=== PATIENT | male | born 1940 | race Caucasian/White ===

== ENCOUNTER 2023-01-07 07:40 | Outpatient (REF) | payer OTHER, SELFPAY ==
--- NOTE | ~2023-01-07 | XR_ITS ---
EXAMINATION: XR KNEE, RIGHT CLINICAL INFORMATION: Reason for Exam M25.561 - Pain in right knee COMPARISON: None TECHNIQUE: 3 views of the knee FINDINGS: No acute fracture or dislocation. Moderate to advanced degenerative changes of the knee with with advanced loss of medial and lateral compartment joint space and tricompartmental osteophytes.. Trace suprapatellar joint effusion. Atherosclerotic vascular calcification. XR/XR knee RT 3V IMPRESSION: * No acute osseous abnormality. * Moderate to advanced degenerative changes of the knee. Small suprapatellar joint effusion.
== END 2023-01-07 07:41 | disposition home or self-care (01) ==
LOC: HO.HOSX 07:40
PROVIDERS: Visit Provider Orthopaedic Surgery
DX: M17.11 Unilateral primary osteoarthritis, right knee (principal); Z79.899 Other long term (current) drug therapy
CPT/HCPCS: 73562; 99202

== ENCOUNTER 2023-01-07 07:48 | Outpatient (AMB) | payer OTHER, SELFPAY ==
--- NOTE | 2023-01-07 07:59 | A.OFFVIS_ITS ---
Intake Vital Signs 01/07/23 08:08 Height 5 ft 9 in Weight 200 lb BMI 29.5 Intake Visit Reasons: [employer] [facility]- Right knee pain Intake Note: Ellie 82 yr old male presents today as a new patient for an evaluation for his right knee. Patient states his pain is on and off thought out the years due to osteoarthritis. Patient has tried Tylenol, aleve, cortisone and bracing from [facility] with good pain relief. Pain is worse with walking down a flight of stairs. States his last cortisone injection was December 29, 2022 in [place] with his PCP. The patient states that he has gotten minimal relief from his most recent cortisone injections. He would like to avoid total knee replacement surgery for as long as possible. He has not had a viscosupplementation injection. He has done physical therapy which aggravated his pain. Allergies No Known Allergies Allergy (Verified 01/07/23 08:05) Medication List - Last Reconciled 01/07/23 by Jayden Beltran MD atorvastatin 10 mg PO BEDTIME budesonide-formoterol 80-4.5 mcg/actuation (Symbicort) 1 inh inhalation BID losartan 25 mg PO DAILY tamsulosin 0.4 mg PO DAILY [facility] Medical History (Updated 01/07/23 @ 08:53 by Jayden Beltran MD) COPD (chronic obstructive pulmonary disease) High blood pressure High cholesterol Social History (Updated 01/07/23 @ 08:08 by [facility]) Current occupational status: employed and retired Current occupation: [employer]/ [employer] Physical Exam Vital Signs: BMI result Body Mass Index 29.5 Const Other: Well-nourished well-developed very friendly male awake alert and oriented x3 in no acute distress Extrem Other: Bilateral lower extremity examination shows good capillary refill, no skin lesions noted, normal sensation light touch Right knee examination shows a minimal effusion, palpable crepitus with range of motion, pain with range of motion, range of motion from -3 degrees to 115 degrees, no instability Results Reviewed Results Reviewed: X-rays of the patient's right knee taken today show severe joint space narrowing, subchondral sclerosis, osteophyte formation, no acute bony abnormalities Assessment & Plan Assessment & Plan (1) Arthritis of right knee: Code(s): M17.11 - Unilateral primary osteoarthritis, right knee Plan Mr. Castellon presents with right knee pain due to severe degenerative joint disease. I had a lengthy discussion with the patient and his regarding the treatment options. He would like to hold off on total knee replacement surgery for as long as possible. I agree with this plan. The patient has not gotten good relief from his most recent cortisone injections. Thus, we will see [email or web address] er not his insurance company will cover a viscosupplementation injection. I will see him back once the injection is available. If he fails continued non operative treatments we will further discuss the risks and benefits of total knee replacement surgery. Feel free to call me at any time should questions regarding his orthopedic management arise. Thank you very much for asking me to see this very friendly gentleman. I spent 23 minutes in reviewing the patient's records and imaging studies, seeing the patient and documenting in the medical record. Orders: Orders XR knee RT 3V Today M25.561 - Pain in right knee Coding Level of Care Code New Pt Level 2 (03446) Diagnoses Arthritis of right knee M17.11
[2023-01-07 08:08] VITALS: BMI 29.5
== END 2023-01-07 08:47 | disposition home or self-care (01) ==
PROVIDERS: Visit Provider Orthopaedic Surgery
DX: M17.11 Unilateral primary osteoarthritis, right knee (principal)
CPT/HCPCS: 99202

== ENCOUNTER 2023-03-17 08:00 | Outpatient (AMB) | payer OTHER, SELFPAY ==
[2023-03-17 08:05] VITALS: BMI 29.5
--- NOTE | 2023-03-17 08:05 | A.OFFVIS_ITS ---
Intake Vital Signs 03/17/23 08:05 Height 5 ft 9 in Weight 200 lb BMI 29.5 Intake Visit Reasons: OV - Right Knee Durolane Intake Note: The patient is an 82 yr old male presents today as a new patient for an evaluation for his right knee. Patient states his pain is on and off thought out the years due to osteoarthritis. Patient has tried Tylenol, aleve, cortisone and bracing from [facility] with good pain relief. Pain is worse with walking down a flight of stairs. States his last cortisone injection was December 29, 2022 in [place] with his PCP. The patient states that he has gotten minimal relief from his most recent cortisone injections. He would like to avoid total knee replacement surgery for as long as possible. He has not had a viscosupplementation injection. He has done physical therapy which aggravated his pain. Allergies No Known Allergies Allergy (Verified 03/17/23 08:07) Medication List - Last Reconciled 03/17/23 by Jayden Beltran MD atorvastatin 10 mg PO BEDTIME budesonide-formoterol 80-4.5 mcg/actuation (Symbicort) 1 inh inhalation BID losartan 25 mg PO DAILY tamsulosin 0.4 mg PO DAILY [facility] Medical History (Updated 01/07/23 @ 08:53 by Jayden Beltran MD) High cholesterol High blood pressure COPD (chronic obstructive pulmonary disease) Social History Current occupational status: employed and retired Current occupation: [employer]/ [employer] Physical Exam Vital Signs: BMI result Body Mass Index 29.5 Const Other: Well-nourished well-developed very friendly male awake alert and oriented x3 in no acute distress Extrem Other: Bilateral lower extremity examination shows good capillary refill, no skin lesions noted, normal sensation light touch Right knee examination shows a moderate effusion, palpable crepitus range of motion, pain with range of motion, range of motion from -3 degrees to 110 degrees, no instability Office Procedures Joint Injection/Drain Joint Injection/Drain Primary Site: right knee Prep: site was prepped using aseptic technique Injected: 20 mg of (Durolane) Procedure: The patient tolerated the procedure well Coding 90142 - Large joint Procedure code (CPT) selection complete Results Reviewed Results Reviewed: 03/17/23 08:00 Hyaluronate Sodium, Stabilized [Durolane] 60 mg INTRAARTIC .STK-MED ONE Lidocaine HCl 2 % MPF [Xylocaine 2 % MPF] 5 ml .ROUTE .STK-MED ONE X-rays of the patient's right knee show joint space narrowing, subchondral sclerosis, no acute bony abnormalities Assessment & Plan Assessment & Plan (1) Arthritis of right knee: Code(s): M17.11 - Unilateral primary osteoarthritis, right knee Plan: Mr. Castellon presents with progressively worsening right knee pain due to degenerative joint disease. I had a lengthy discussion with the patient regarding his treatment options. He wishes to hold off on surgery for as long as possible. I agree with this plan. The risks and benefits of a viscosupplementation injection were discussed at length with the patient. The patient wished to proceed. Prior to the injection I aspirated 25 cc of clear fluid from his right knee. He tolerated the injection well. He will continue with his activity modifications. He will follow up with me on an as-needed basis should his symptoms not plateau at an unacceptable level over the next few months. If he fails continued non operative treatments we will further discuss the risks and benefits of right total knee replacement surgery. Feel free to call me at any time should questions regarding his orthopedic management arise. I spent 22 minutes in reviewing the patient's records and imaging studies, seeing the patient and documenting in the medical record. Orders: Orders AMB Joint Injection/Aspiration Today M17.11 - Unilateral primary osteoarthritis, right knee Coding Level of Care Code Est Pt Level 2 (81969) Diagnoses Arthritis of right knee M17.11 CPT Codes Coding - 41156 Large joint: 87265 - Large joint ([id number])
== END 2023-03-17 08:31 | disposition home or self-care (01) ==
PROVIDERS: Visit Provider Orthopaedic Surgery
DX: M17.11 Unilateral primary osteoarthritis, right knee (principal)
CPT/HCPCS: 20610; 99212

== ENCOUNTER → 2023-03-17 08:00 | Outpatient (BNVA) | payer OTHER, SELFPAY | PROVIDERS: Visit Provider Orthopaedic Surgery | DX: M17.11 Unilateral primary osteoarthritis, right knee (principal) | CPT/HCPCS: 20610; 99212; J7318 ==

== ENCOUNTER 2023-06-18 08:22 | Outpatient (AMB) | payer OTHER, SELFPAY ==
[2023-06-18 08:27] VITALS: BMI 29.5
--- NOTE | 2023-06-18 08:27 | MHC.OFFVIS ---
Intake Vital Signs 06/18/23 08:27 Height 5 ft 9 in Weight 200 lb BMI 29.5 Intake Visit Reasons: OV - Right Knee pain Intake Note: Dax is a 83 year old male patient who presents today for a follow up after a Right knee aspiration and Durolane injection on 03/17/2023. Patient states his last injection gave him mild relief. Today the patient presents with complaints of bilateral knee pains. He has tried Tylenol and anti-inflammatory medicines which gave him minimal relief. He has also done physical therapy exercises which aggravated his pain. He wishes to hold off on surgery for as long as possible. Allergies No Known Allergies Allergy (Verified 06/18/23 08:28) Medication List - Last Reconciled 06/19/23 by Jayden Beltran MD atorvastatin 10 mg PO BEDTIME budesonide-formoterol 80-4.5 mcg/actuation (Symbicort) 1 inh inhalation BID losartan 25 mg PO DAILY tamsulosin 0.4 mg PO DAILY [facility] Medical History (Updated 06/19/23 @ 16:10 by Jayden Beltran MD) High cholesterol High blood pressure COPD (chronic obstructive pulmonary disease) Social History Current occupational status: employed and retired Current occupation: [employer]/ [employer] Physical Exam Vital Signs: BMI result Body Mass Index 29.5 Const Other: Well-nourished well-developed very friendly male awake alert and oriented x3 in no acute distress Extrem Other: Bilateral lower extremity examination shows good capillary refill, no skin lesions noted, normal sensation light touch Bilateral knee examination shows minimal effusions, palpable crepitus with range of motion, pain with range of motion, no instability Office Procedures Joint Injection/Drain Joint Injection/Drain Primary Site: left knee Prep: site was prepped using aseptic technique Injected: 40 mg of, DepoMedrol and 1% plain lidocaine Procedure: The patient tolerated the procedure well Coding 35531 - Large joint Procedure code (CPT) selection complete Joint Injection/Drain Joint Injection/Drain Primary Site: right knee Prep: site was prepped using aseptic technique Injected: 40 mg of, DepoMedrol and 1% plain lidocaine Procedure: The patient tolerated the procedure well Coding 64153 - Large joint Procedure code (CPT) selection complete Results Reviewed Results Reviewed: X-rays of the patient's bilateral knee show joint space narrowing, subchondral sclerosis, no acute bony abnormalities Assessment & Plan Assessment & Plan (1) Arthritis of left knee: Code(s): M17.12 - Unilateral primary osteoarthritis, left knee (2) Arthritis of right knee: Code(s): M17.11 - Unilateral primary osteoarthritis, right knee Plan Mr. Castellon presents with bilateral knee pains due to degenerative joint disease. I had a lengthy discussion with the patient regarding the treatment options. He wishes to hold off on surgery for as long as possible. I agree with this plan. The risks and benefits of bilateral knee cortisone injections were discussed at length with the patient. The patient wished to proceed. He tolerated the injections well. He will continue with his home exercise program. Will follow up with me on an as-needed basis should his symptoms not plateau at an unacceptable level over the next few months. Feel free to call me at any time should questions regarding his orthopedic management arise. I spent 22 minutes in reviewing the patient's records and imaging studies, seeing the patient and documenting in the medical record. Orders: Orders AMB Joint Injection/Aspiration 06/18/23 M17.11 - Unilateral primary osteoarthritis, right knee AMB Joint Injection/Aspiration 06/18/23 M17.12 - Unilateral primary osteoarthritis, left knee Coding Level of Care Code Est Pt Level 2 (72258) Diagnoses Arthritis of left knee M17.12 Arthritis of right knee M17.11 CPT Codes Coding - 94322 Large joint: 11629 - Large joint ([id number]) Coding - 21062 Large joint: 45235 - Large joint ([id number])
== END 2023-06-18 09:15 | disposition home or self-care (01) ==
PROVIDERS: Visit Provider Orthopaedic Surgery
DX: M17.0 Bilateral primary osteoarthritis of knee (principal)
CPT/HCPCS: 20610; 99213

== ENCOUNTER → 2023-06-18 08:22 | Outpatient (BNVA) | payer OTHER, SELFPAY | PROVIDERS: Visit Provider Orthopaedic Surgery | DX: M17.0 Bilateral primary osteoarthritis of knee (principal) | CPT/HCPCS: 20610; 99212; J1020 ==

== ENCOUNTER 2023-09-24 10:58 | Outpatient (AMB) | payer OTHER, SELFPAY ==
--- NOTE | 2023-09-24 11:16 | MHC.OFFVIS ---
Intake Vital Signs 09/24/23 11:17 Height 5 ft 9 in Weight 200 lb BMI 29.5 Intake Visit Reasons: OV-B/L Knee pain-f/u Intake Note: Dax Argueta is a 83 year old male who presents for a follow up for his bilateral knee pain. Patient reports he had bilateral injections on 06/18/2023 and they gave him good relief. His pains have returned. He describes his pains as sharp in nature. At this point his right knee pain is more bothersome than is his left. He wishes to hold off on surgery for as long as possible. Has tried Tylenol and anti-inflammatory medicines which gave him minimal relief. Allergies No Known Allergies Allergy (Verified 09/24/23 11:25) Medication List - Last Reconciled 09/25/23 by Jayden Beltran MD atorvastatin 10 mg PO BEDTIME budesonide-formoterol 80-4.5 mcg/actuation (Symbicort) 1 inh inhalation BID losartan 25 mg PO DAILY tamsulosin 0.4 mg PO DAILY [facility] Medical History High cholesterol High blood pressure COPD (chronic obstructive pulmonary disease) Social History Current occupational status: employed and retired Current occupation: [employer]/ [employer] Physical Exam Vital Signs: BMI result Body Mass Index 29.5 Const Other: Well-nourished well-developed very friendly male awake alert and oriented x3 in no acute distress Extrem Other: Bilateral lower extremity examination shows good capillary refill, no skin lesions noted, normal sensation light touch Bilateral knee examination shows mild effusions, palpable crepitus with range of motion, pain with range of motion, no instability Office Procedures Joint Injection/Drain Joint Injection/Drain Primary Site: right knee Prep: site was prepped using aseptic technique Injected: 40 mg of, DepoMedrol and 1% plain lidocaine Procedure: The patient tolerated the procedure well Coding 44722 - Large joint Procedure code (CPT) selection complete Joint Injection/Drain Joint Injection/Drain Primary Site: left knee Prep: site was prepped using aseptic technique Injected: 40 mg of, DepoMedrol and 1% plain lidocaine Procedure: The patient tolerated the procedure well Coding 18011 - Large joint Procedure code (CPT) selection complete Results Reviewed Results Reviewed: X-rays of the patient's bilateral knee show joint space narrowing, subchondral sclerosis, no acute bony abnormalities Assessment & Plan Assessment & Plan (1) Arthritis of left knee: Code(s): M17.12 - Unilateral primary osteoarthritis, left knee (2) Arthritis of right knee: Code(s): M17.11 - Unilateral primary osteoarthritis, right knee Plan Mr. Castellon presents with bilateral knee pains due to degenerative joint disease. I had a lengthy discussion with the patient regarding the treatment options. He wishes to hold off on surgery for as long as possible. I agree with this plan. The risks and benefits of bilateral knee cortisone injections were discussed at length with the patient. The patient wished to proceed. Prior to his right knee injection 4 cc of clear fluid were aspirated. Prior to his left knee injection 1 cc of clear fluid was aspirated. The patient will continue with activities as tolerated. He will follow up with me on an as-needed basis should his symptoms not plateau at an unacceptable level over the next few months. I spent 22 minutes in reviewing the patient's records and imaging studies, seeing the patient and documenting in the medical record. Orders: Orders AMB Joint Injection/Aspiration 09/24/23 M17.12 - Unilateral primary osteoarthritis, left knee AMB Joint Injection/Aspiration 09/24/23 M17.11 - Unilateral primary osteoarthritis, right knee Coding Level of Care Code Est Pt Level 2 (20760) Diagnoses Arthritis of left knee M17.12 Arthritis of right knee M17.11 CPT Codes Coding - 37202 Large joint: 25624 - Large joint ([id number]) Coding - 36507 Large joint: 66272 - Large joint ([id number])
[2023-09-24 11:17] VITALS: BMI 29.5
== END 2023-09-24 11:48 | disposition home or self-care (01) ==
PROVIDERS: Visit Provider Orthopaedic Surgery
DX: M17.0 Bilateral primary osteoarthritis of knee (principal)

== ENCOUNTER → 2023-09-24 10:58 | Outpatient (BNVA) | payer OTHER, SELFPAY | PROVIDERS: Visit Provider Orthopaedic Surgery | DX: M17.0 Bilateral primary osteoarthritis of knee (principal) | CPT/HCPCS: 20610; J1010; J1020 ==

== ENCOUNTER 2024-01-06 09:32 | Outpatient (REF) | payer OTHER, SELFPAY ==
--- NOTE | ~2024-01-06 | XR_ITS ---
EXAMINATION: XR KNEE, RIGHT XR KNEE, LEFT CLINICAL INFORMATION: Osteoarthritis. COMPARISON: Right knee radiographs dated 01/07/2023. TECHNIQUE: AP, lateral, and sunrise views of the right and left knee. FINDINGS: Right knee: [id number]-qo-ipxwiz tricompartmental joint space narrowing with marginal osteophytes, slightly progressed. No acute fracture or dislocation. No concerning lytic or blastic osseous lesion. Prominent atherosclerotic calcifications. Trace joint effusion. Left knee: Arjirexg-ih-eeobbf tricompartmental joint space narrowing with marginal osteophytes. No acute fracture or dislocation. No concerning lytic or blastic osseous lesion. Prominent atherosclerotic calcifications. Trace joint effusion. XR/XR knee LT 3V IMPRESSION: RIGHT KNEE: Moderate to severe tricompartmental osteoarthritis, slightly progressed. Trace joint effusion. LEFT KNEE: Moderate to severe tricompartmental osteoarthritis. Trace joint effusion.
--- NOTE | ~2024-01-06 | XR_ITS ---
EXAMINATION: XR KNEE, RIGHT XR KNEE, LEFT CLINICAL INFORMATION: Osteoarthritis. COMPARISON: Right knee radiographs dated 01/07/2023. TECHNIQUE: AP, lateral, and sunrise views of the right and left knee. FINDINGS: Right knee: Sroruvho-vw-ziouni tricompartmental joint space narrowing with marginal osteophytes, slightly progressed. No acute fracture or dislocation. No concerning lytic or blastic osseous lesion. Prominent atherosclerotic calcifications. Trace joint effusion. Left knee: Hazbwcxk-rk-ngqxnb tricompartmental joint space narrowing with marginal osteophytes. No acute fracture or dislocation. No concerning lytic or blastic osseous lesion. Prominent atherosclerotic calcifications. Trace joint effusion. XR/XR knee RT 3V IMPRESSION: RIGHT KNEE: Moderate to severe tricompartmental osteoarthritis, slightly progressed. Trace joint effusion. LEFT KNEE: Moderate to severe tricompartmental osteoarthritis. Trace joint effusion.
== END 2024-01-06 09:33 | disposition home or self-care (01) ==
LOC: HO.HOSX 09:32
PROVIDERS: Visit Provider Orthopaedic Surgery
DX: M17.0 Bilateral primary osteoarthritis of knee (principal)
CPT/HCPCS: 20610; 73562; 99212; J1010

== ENCOUNTER 2024-01-06 09:49 | Outpatient (AMB) | payer OTHER, SELFPAY ==
[2024-01-06 10:18] VITALS: BMI 29.5
--- NOTE | 2024-01-06 10:18 | A.OFFVIS_ITS ---
Vital Signs 01/06/24 10:18 Height 5 ft 9 in Weight 200 lb BMI 29.5 Intake Visit Reasons: OV-B/L Knee pain-f/u Intake Note: Dax Argueta is a 83 year old male who presents for a follow up for his bilateral knee pain. Patient reports ongoing soreness. Patient would like to repeat cortisone injections today, last done 09/24/23. He has taken Tylenol and anti- inflammatory medicines which gave him minimal relief. He has also done physical therapy exercises which aggravated his pain. Would like to hold off on surgery if Allergies No Known Allergies Allergy (Verified 01/06/24 10:19) Medication List - Last Reconciled 01/06/24 by Jayden Beltran MD atorvastatin 10 mg PO BEDTIME budesonide-formoterol 80-4.5 mcg/actuation (Symbicort) 1 inh inhalation BID losartan 25 mg PO DAILY tamsulosin 0.4 mg PO DAILY [facility] Medical History High cholesterol High blood pressure COPD (chronic obstructive pulmonary disease) Social History Current occupational status: employed and retired Current occupation: [employer]/ [employer] Physical Exam Vital Signs: BMI result Body Mass Index 29.5 Const Other: Well-nourished well-developed very friendly male awake alert and oriented x3 in no acute distress Extrem Other: Bilateral lower extremity examination shows good capillary refill, no skin lesions noted, normal sensation light touch Bilateral knee examination shows palpable crepitus with range of motion, pain with range of motion, range of motion from -3 degrees to 115 degrees, no instability Office Procedures Joint Injection/Drain Joint Injection/Drain Primary Site: right knee Prep: site was prepped using aseptic technique Injected: 40 mg of, DepoMedrol and 1% plain lidocaine Procedure: The patient tolerated the procedure well Coding 95779 - Large joint Procedure code (CPT) selection complete Joint Injection/Drain Joint Injection/Drain Primary Site: left knee Prep: site was prepped using aseptic technique Injected: 40 mg of, DepoMedrol and 1% plain lidocaine Procedure: The patient tolerated the procedure well Coding 84681 - Large joint Procedure code (CPT) selection complete Results Reviewed Results Reviewed: X-rays of the patient's bilateral knees taken today show moderate to severe joint space narrowing, subchondral sclerosis, no acute bony abnormalities Assessment & Plan Assessment & Plan (1) Arthritis of left knee: Code(s): M17.12 - Unilateral primary osteoarthritis, left knee Category: Medical (2) Arthritis of right knee: Code(s): M17.11 - Unilateral primary osteoarthritis, right knee Category: Medical Plan Mr. Castellon presents with bilateral knee pains due to degenerative joint disease. I had a lengthy discussion with the patient regarding the treatment options. The patient wishes to hold off on total knee replacement surgery for as long as possible. I agree with this plan. The risks and benefits of bilateral knee cortisone injections were discussed at length with the patient. The patient wished to proceed. Tolerated the injections well. Prior to the patient's right knee injection I aspirated 10 cc of clear fluid. He will continue with his activity modifications. He will follow up with me on an as- needed basis should his symptoms not plateau at an unacceptable level over the next few months. I spent 20 minutes in reviewing the patient's records and imaging studies, seeing the patient and documenting in the medical record. Orders: Orders AMB Joint Injection/Aspiration Today M17.12 - Unilateral primary osteoarthritis, left knee XR knee LT 3V Today M17.12 - Unilateral primary osteoarthritis, left knee XR knee RT 3V Today M17.11 - Unilateral primary osteoarthritis, right knee AMB Joint Injection/Aspiration Today M17.11 - Unilateral primary osteoarthritis, right knee Coding Level of Care Code Est Pt Level 3 (75137) Diagnoses Arthritis of left knee M17.12 Arthritis of right knee M17.11 CPT Codes Coding - 30309 Large joint: 54240 - Large joint ([id number]) Coding - 47751 Large joint: 41489 - Large joint ([id number])
== END 2024-01-06 10:46 | disposition home or self-care (01) ==
PROVIDERS: Visit Provider Orthopaedic Surgery
DX: M17.0 Bilateral primary osteoarthritis of knee (principal)
CPT/HCPCS: 20610; 99213

== ENCOUNTER 2024-04-07 09:28 | Outpatient (AMB) | payer OTHER, SELFPAY ==
[2024-04-07 09:29] VITALS: BMI 29.5
--- NOTE | 2024-04-07 09:29 | MHC.OFFVIS ---
Vital Signs 04/07/24 09:29 Height 5 ft 9 in Weight 200 lb BMI 29.5 Intake Visit Reasons: Bilateral knee pain Intake Note: Ellie is a 83 ear old male who presents with complaints of progressively worsening bilateral knee pains. The patient describes his pains as sharp in nature. His pains have gotten worse over the last few months in spite of continued non operative treatments. He has done physical therapy which aggravated his pain. He has also tried Tylenol and anti-inflammatory medicines which gave him minimal relief. He has had cortisone injections in the past which gave him fairly good relief. He wishes to hold off on surgery for as long as possible. Allergies No Known Allergies Allergy (Verified 04/07/24 09:35) Medication List - Last Reconciled 04/07/24 by Jayden Beltran MD atorvastatin 10 mg PO BEDTIME budesonide-formoterol 80-4.5 mcg/actuation (Symbicort) 1 inh inhalation BID losartan 25 mg PO DAILY tamsulosin 0.4 mg PO DAILY PFS Medical History High cholesterol High blood pressure COPD (chronic obstructive pulmonary disease) Social History Current occupational status: employed and retired Current occupation: [employer]/ [employer] Physical Exam Vital Signs: BMI result Body Mass Index 29.5 Const Other: Well-nourished well-developed very friendly male awake alert and oriented x3 in no acute distress Extrem Other: Bilateral lower extremity examination shows good capillary refill, no skin lesions noted, normal sensation light touch Bilateral knee examination shows minimal effusions, palpable crepitus with range of motion, pain with range of motion, no instability Office Procedures Joint Injection/Aspiration Joint Injection/Aspiration Primary Site: left knee Prep: site was prepped using aseptic technique Injected: 40 mg of, DepoMedrol and 1% plain lidocaine Procedure: The patient tolerated the procedure well Coding 19412 - Large joint Procedure code (CPT) selection complete Joint Injection/Aspiration Joint Injection/Aspiration Primary Site: right knee Prep: site was prepped using aseptic technique Injected: 40 mg of, DepoMedrol and 1% plain lidocaine Procedure: The patient tolerated the procedure well Coding 76030 - Large joint Procedure code (CPT) selection complete Results Reviewed Results Reviewed: X-rays of the patient's bilateral knees taken previously show joint space narrowing, subchondral sclerosis, no acute bony abnormalities Assessment & Plan Assessment & Plan (1) Arthritis of left knee: Code(s): M17.12 - Unilateral primary osteoarthritis, left knee Category: Medical (2) Arthritis of right knee: Code(s): M17.11 - Unilateral primary osteoarthritis, right knee Category: Medical (3) Pain in both knees: Code(s): M25.561 - Pain in right knee; M25.562 - Pain in left knee Plan Mr. Castellon presents with bilateral knee pains due to degenerative joint disease. I had a lengthy discussion with the patient regarding the treatment options. The risks and benefits of bilateral knee cortisone injections were discussed at length with the patient. The patient wished to proceed. He tolerated the injections well. He will continue with his home exercise program. He will contact me prior to his follow-up appointment in 3 months should any questions or concerns arise. Feel free to call me at any time should questions regarding his orthopedic management arise. I spent 22 minutes in reviewing the patient's records and imaging studies, seeing the patient and documenting in the medical record. Orders: Orders AMB Joint Injection/Aspiration 04/07/24 M17.11 - Unilateral primary osteoarthritis, right knee AMB Joint Injection/Aspiration 04/07/24 M17.12 - Unilateral primary osteoarthritis, left knee Coding Level of Care Code Est Pt Level 3 (69546) Complex EM visit Add On G2211 Diagnoses Arthritis of left knee M17.12 Arthritis of right knee M17.11 Pain in both knees M25.561; M25.562 CPT Codes Coding - 74630 Large joint: 31143 - Large joint ([id number]) Coding - 10726 Large joint: 63847 - Large joint ([id number])
== END 2024-04-07 09:58 | disposition home or self-care (01) ==
PROVIDERS: Visit Provider Orthopaedic Surgery
DX: M17.0 Bilateral primary osteoarthritis of knee (principal)
CPT/HCPCS: 20610; 99213

== ENCOUNTER → 2024-04-07 09:28 | Outpatient (BNVA) | payer OTHER, SELFPAY | PROVIDERS: Visit Provider Orthopaedic Surgery | DX: M17.0 Bilateral primary osteoarthritis of knee (principal) | CPT/HCPCS: 20610; 99212; J1010; J2003 ==

== ENCOUNTER 2024-07-12 08:18 | Outpatient (AMB) | payer OTHER, SELFPAY ==
--- NOTE | 2024-07-12 08:28 | A.OFFVIS_ITS ---
Vital Signs 07/12/24 08:31 Height 5 ft 9 in Weight 200 lb BMI 29.5 Intake Visit Reasons: inj-B/L Knee pain-last injection-04/07/24 Intake Note: Dax is an 84 ear old male who presents with complaints of bilateral knee pains. He describes his pains as sharp in nature. He has had cortisone injections in the past which gave him fairly good relief. He wishes to hold off on total knee replacement surgery for as long as possible. He has tried Tylenol and anti- inflammatory medicines which gave him only mild relief. He denies any locking or giving way. 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 Physical Exam Vital Signs: BMI result Body Mass Index 29.5 Const Other: Well-nourished well-developed very friendly male awake alert and oriented x3 in no acute distress Extrem Other: Bilateral lower extremity examination shows good capillary refill, no skin lesions noted, normal sensation light touch Bilateral knee examination shows minimal effusions, palpable crepitus with range of motion, pain with range of motion, no instability Office Procedures AMB Joint Injection/Aspiration Joint Injection/Aspiration Primary Site: right knee Prep: site was prepped using aseptic technique Injected: 40 mg of, DepoMedrol and 1% plain lidocaine Procedure: The patient tolerated the procedure well Coding 73705 - Large joint Procedure code (CPT) selection complete AMB Joint Injection/Aspiration Joint Injection/Aspiration Primary Site: left knee Injected: 40 mg of, DepoMedrol and 1% plain lidocaine Procedure: The patient tolerated the procedure well Coding 20313 - Large joint Procedure code (CPT) selection complete Results Reviewed Results Reviewed: X-rays of the patient's bilateral knees taken previously show joint space narrowing, subchondral sclerosis, no acute bony abnormalities Assessment & Plan Assessment & Plan (1) Arthritis of left knee: Code(s): M17.12 - Unilateral primary osteoarthritis, left knee Category: Medical (2) Arthritis of right knee: Code(s): M17.11 - Unilateral primary osteoarthritis, right knee Category: Medical Plan Mr. Castellon presents with bilateral knee pains due to degenerative joint disease. The risks and benefits of bilateral knee cortisone injections were discussed at length with the patient. The patient wished to proceed. He tolerated the injections well. He will continue with his home exercise program. He will contact me prior to his follow-up appointment in 3 months should any questions or concerns arise. Feel free to call me at any time should questions regarding his orthopedic management arise. I spent 21 minutes in reviewing the patient's records and imaging studies, seeing the patient and documenting in the medical record. Orders: Orders AMB Joint Injection/Aspiration Today M17.12 - Unilateral primary osteoarthritis, left knee AMB Joint Injection/Aspiration Today M17.11 - Unilateral primary osteoarthri tis, right knee Coding Level of Care Code Est Pt Level 3 (84875) Complex EM visit Add On G2211 Diagnoses Arthritis of left knee M17.12 Arthritis of right knee M17.11 CPT Codes Coding - 12390 Large joint: 98342 - Large joint ([id number]) Coding - 36545 Large joint: 73249 - Large joint ([id number])
[2024-07-12 08:31] VITALS: BMI 29.5
--- OUTSIDE RECORDS SUMMARY | 2024-07-12 08:42 | XMS_ITS | Clinical Summary ---
Author Organization [facility] Address [address] [place] [address] Care Team Providers Care Aerial Tram Operator Name Role Phone Unavailable Primary Care Provider Unavailabl e Social History Tobacco Use Types Packs/Day Years Used Date Smoking Tobacco: Never Assessed Sex and Gender Information Value Date Recorded Sex Assigned at Not on file Gender Identity Not on file Sexual Orientation Not on file Plan of Treatment Not on file
== END 2024-07-12 09:13 | disposition home or self-care (01) ==
PROVIDERS: Visit Provider Orthopaedic Surgery
DX: M17.0 Bilateral primary osteoarthritis of knee (principal)
CPT/HCPCS: 20610; 99213

== ENCOUNTER → 2024-07-12 08:18 | Outpatient (BNVA) | payer OTHER, SELFPAY | PROVIDERS: Visit Provider Orthopaedic Surgery | DX: M17.0 Bilateral primary osteoarthritis of knee (principal) | CPT/HCPCS: 20610; 99212; J1010; J2003 ==

== ENCOUNTER 2024-10-13 08:47 | Outpatient (AMB) | payer OTHER, SELFPAY ==
[2024-10-13 08:49] VITALS: BMI 29.5
--- NOTE | 2024-10-13 08:49 | A.OFFVIS_ITS ---
Vital Signs 10/13/24 08:49 Height 5 ft 9 in Weight 200 lb BMI 29.5 Intake Visit Reasons: Bilateral knee pains Intake Note: Ellie is an 84 year old male who presents with complaints of bilateral knee pains. He describes his pains as sharp in nature. He has tried Tylenol and anti-inflammatory medicines which gave him minimal relief. He wishes to hold off on total knee replacement surgery for now. He has had cortisone injections in the past which gave him only temporary relief. He has not had a viscosupplementation injection. He has failed the last 3 months of conservative treatment which has included a home exercise program, topical creams, Tylenol and anti-inflammatory medicines. At this point his knee pains are interfering with his activities of daily living and his ability to sleep well through the night. Allergies No Known Allergies Allergy (Verified 10/13/24 08:50) Medication List - Last Reconciled 10/13/24 by Jayden Beltran MD atorvastatin 10 mg PO BEDTIME budesonide-formoterol 80-4.5 mcg/actuation (Symbicort) 1 inh inhalation BID losartan 25 mg PO DAILY tamsulosin 0.4 mg PO DAILY [facility] Medical History High cholesterol High blood pressure COPD (chronic obstructive pulmonary disease) Social History Current occupational status: employed and retired Current occupation: [employer]/ [employer] Physical Exam Vital Signs: BMI result Body Mass Index 29.5 Const Other: Well-nourished well-developed very friendly male awake alert and oriented x3 in no acute distress Extrem Other: Bilateral knee examination shows minimal effusions, palpable crepitus with range of motion, pain with range of motion, no instability Office Procedures AMB Joint Injection/Aspiration Joint Injection/Aspiration Primary Site: left knee Prep: site was prepped using aseptic technique Injected: 40 mg of, DepoMedrol and 1% plain lidocaine Procedure: The patient tolerated the procedure well Coding 41185 - Large joint Procedure code (CPT) selection complete AMB Joint Injection/Aspiration Joint Injection/Aspiration Primary Site: right knee Prep: site was prepped using aseptic technique Injected: 40 mg of, DepoMedrol and 1% plain lidocaine Procedure: The patient tolerated the procedure well Coding 20663 - Large joint Procedure code (CPT) selection complete Assessment & Plan Assessment & Plan (1) Arthritis of left knee: Code(s): M17.12 - Unilateral primary osteoarthritis, left knee Category: Medical (2) Arthritis of right knee: Code(s): M17.11 - Unilateral primary osteoarthritis, right knee Category: Medical Plan Mr. Castellon presents with bilateral knee pains due to degenerative joint disease. The risks and benefits of bilateral knee cortisone injections were discussed at length with the patient. The patient wished to proceed. He tolerated the injections well. Will continue with his activity modifications. He will contact me prior to his follow-up appointment in 3 months should any que stions or concerns arise. If he does not get lasting relief from the cortisone injections we will see whether or not his insurance company will cover a series of viscosupplementation injections. Feel free to call me at any time should questions regarding his orthopedic management arise. I spent 22 minutes in reviewing the patient's records and imaging studies, seeing the patient and documenting in the medical record. Orders: Orders AMB Joint Injection/Aspiration Today M17.12 - Unilateral primary osteoarthritis, left knee AMB Joint Injection/Aspiration Today M17.11 - Unilateral primary osteoarthritis, right knee Coding Level of Care Code Est Pt Level 3 (06277) Complex EM visit Add On G2211 Diagnoses Arthritis of left knee M17.12 Arthritis of right knee M17.11 CPT Codes Coding - 12022 Large joint: 98319 - Large joint ([id number]) Coding - 43393 Large joint: 96843 - Large joint ([id number])
--- OUTSIDE RECORDS SUMMARY | 2024-10-13 09:10 | XMS_ITS | Clinical Summary ---
[facility] Address [address] [place] [address] Care Team Providers Care Test Tube Maker Name Role Phone Unavailable Primary Care Provider Unavailabl e Social History Tobacco Use Types Packs/Day Years Used Date Smoking Tobacco: Never Assessed Sex and Gender Information Value Date Recorded Sex Assigned at Not on file Gender Identity Not on file Sexual Orientation Not on file Plan of Treatment Not on file
== END 2024-10-13 09:22 | disposition home or self-care (01) ==
LOC: HO.HOS 08:48
PROVIDERS: Referring Provider Orthopaedic Surgery; Visit Provider Orthopaedic Surgery
DX: M17.0 Bilateral primary osteoarthritis of knee (principal)
CPT/HCPCS: 20610; 99213

== ENCOUNTER → 2024-10-13 08:47 | Outpatient (BNVA) | payer OTHER, SELFPAY | PROVIDERS: Visit Provider Orthopaedic Surgery | DX: M17.0 Bilateral primary osteoarthritis of knee (principal) | CPT/HCPCS: 20610; 99212; J1010; J2003 ==

== ENCOUNTER 2025-01-17 08:37 | Outpatient (AMB) | payer OTHER, SELFPAY ==
--- NOTE | 2025-01-17 08:39 | MHC.OFFVIS ---
Vital Signs 01/17/25 08:41 Height 5 ft 9 in Weight 200 lb BMI 29.5 Intake Visit Reasons: Inj-B/L Knee pain-last injection10/13/24 Intake Note: Dax is a 84 year old male who presents with complaints of bilateral knee pains. He describes his pains as achy in nature. He has tried Tylenol and ibuprofen which gave him minimal relief. He has had injections in the past which gave him fairly good relief. He wishes to hold off on surgery if at all possible. Allergies No Known Allergies Allergy (Verified 01/17/25 08:42) Medication List - Last Reconciled 01/17/25 by Jayden Beltran MD atorvastatin 10 mg PO BEDTIME budesonide-formoterol 80-4.5 mcg/actuation (Symbicort) 1 inh inhalation BID losartan 25 mg PO DAILY tamsulosin 0.4 mg PO DAILY PFS Medical History High cholesterol High blood pressure COPD (chronic obstructive pulmonary disease) Social History Current occupational status: employed and retired Current occupation: [employer]/ [employer] Physical Exam Vital Signs: BMI result Body Mass Index 29.5 Const Other: Well-nourished well-developed very friendly male awake alert and oriented x3 in no acute distress Extrem Other: Bilateral knee examination shows minimal effusions, palpable crepitus with range of motion, pain with range of motion, no instability Office Procedures AMB Joint Injection/Aspiration Joint Injection/Aspiration Primary Site: left knee Prep: site was prepped using aseptic technique Injected: 40 mg of, DepoMedrol and 1% plain lidocaine Procedure: The patient tolerated the procedure well Coding 65914 - Large joint Procedure code (CPT) selection complete AMB Joint Injection/Aspiration Joint Injection/Aspiration Primary Site: right knee Prep: site was prepped using aseptic technique Injected: 40 mg of, DepoMedrol and 1% plain lidocaine Procedure: The patient tolerated the procedure well Coding 71771 - Large joint Procedure code (CPT) selection complete Results Reviewed Results Reviewed: X-rays of the patient's bilateral knees taken previously show joint space narrowing, subchondral sclerosis, no acute bony abnormalities Assessment & Plan Assessment & Plan (1) Arthritis of left knee: Code(s): M17.12 - Unilateral primary osteoarthritis, left knee Category: Medical (2) Arthritis of right knee: Code(s): M17.11 - Unilateral primary osteoarthritis, right knee Category: Medical Plan Mr. Castellon presents with bilateral knee pains due to degenerative joint disease. The risks and benefits of bilateral knee cortisone injections were discussed at length with the patient. The patient wished to proceed. He tolerated the injections well. He will continue with his home exercise program. He will contact me prior to his follow-up appointment in 3 months should any questions or concerns arise. Feel free to call me at any time should questions regarding his orthopedic management arise. I spent 20 minutes in reviewing the patient's records and imaging studies, seeing the patient and documenting in the medical record. Orders: Orders AMB Joint Injection/Aspiration Today M17.12 - Unilateral primary osteoarthritis, left knee AMB Joint Injection/Aspiration Today M17.11 - Unilateral primary osteoarthritis, right knee Coding Level of Care Code Est Pt Level 3 (75649) Complex EM visit Add On G2211 Diagnoses Arthritis of left knee M17.12 Arthritis of right knee M17.11 CPT Codes Coding - 99935 Large joint: 76676 - Large joint ([id number]) Coding - 71121 Large joint: 91465 - Large joint ([id number])
[2025-01-17 08:41] VITALS: BMI 29.5
--- OUTSIDE RECORDS SUMMARY | 2025-01-17 08:47 | XMS_ITS | Clinical Summary ---
Author Organization [facility] Address [address] [place] [address] Care Team Providers Care Control Clerk Name Role Phone Unavailable Primary Care Provider Unavailabl e Social History Tobacco Use Types Packs/Day Years Used Date Smoking Tobacco: Never Assessed Sex and Gender Information Value Date Recorded Sex Assigned at Not on file Gender Identity Not on file Sexual Orientation Not on file Plan of Treatment Not on file
== END 2025-01-17 09:03 | disposition home or self-care (01) ==
LOC: HO.HOS 08:37
PROVIDERS: Visit Provider Orthopaedic Surgery
DX: M17.0 Bilateral primary osteoarthritis of knee (principal)
CPT/HCPCS: 20610; 99213

== ENCOUNTER → 2025-01-17 08:37 | Outpatient (BNVA) | payer OTHER, SELFPAY | PROVIDERS: Visit Provider Orthopaedic Surgery | DX: M17.0 Bilateral primary osteoarthritis of knee (principal) | CPT/HCPCS: 20610; 99212; J1010; J2003 ==

== ENCOUNTER 2025-05-09 07:55 | Outpatient (AMB) | payer OTHER, SELFPAY ==
--- OUTSIDE RECORDS SUMMARY | 2025-05-09 08:03 | XMS_ITS | Clinical Summary ---
Author Organization [facility] Address [address] [place] [address] Care Team Providers Care Strip Tank Tender Name Role Phone Unavailable Primary Care Provider Unavailabl e Social History Tobacco Use Types Packs/Day Years Used Date Smoking Tobacco: Never Assessed Sex and Gender Information Value Date Recorded Sex Assigned at Not on file Gender Identity Not on file Sexual Orientation Not on file Plan of Treatment Not on file
--- NOTE | 2025-05-09 08:06 | A.OFFVIS_ITS ---
Vital Signs 05/09/25 08:13 Height 5 ft 9 in Weight 200 lb BMI 29.5 Intake Visit Reasons: Inj-B/L Knee pain-last injection 01/17/25 Intake Note: Dax is a 85 year old male who presents with complaints of bilateral knee pains. He describes his pains as sharp in nature. He has tried Tylenol and anti- inflammatory medicines which gave him minimal relief. He has had cortisone injections which have given him good relief. He wishes to hold off on surgery if at all possible. Allergies No Known Allergies Allergy (Verified 05/09/25 08:12) Medication List - Last Reconciled 05/09/25 by Jayden Beltran MD atorvastatin 10 mg PO BEDTIME budesonide-formoterol 80-4.5 mcg/actuation (Symbicort) 1 inh inhalation BID losartan 25 mg PO DAILY tamsulosin 0.4 mg PO DAILY [facility] Medical History High cholesterol High blood pressure COPD (chronic obstructive pulmonary disease) Social History Current occupational status: employed and retired Current occupation: [employer]/ [employer] Physical Exam Vital Signs: BMI result Body Mass Index 29.5 Extrem Other: Bilateral knee examination shows minimal effusions, palpable crepitus with range of motion, pain with range of motion, no instability Office Procedures AMB Joint Injection/Aspiration Joint Injection/Aspiration Primary Site: Left Knee Prep: site was prepped using aseptic technique Injected: 40 mg of, DepoMedrol, with 3 mL of and 1% plain Lidocaine Procedure: The patient tolerated the procedure well Coding 16087 - Large joint Procedure code (CPT) selection complete AMB Joint Injection/Aspiration Joint Injection/Aspiration Primary Site: Right Knee Prep: site was prepped using aseptic technique Injected: 40 mg of, DepoMedrol, with 3 mL of and 1% plain Lidocaine Procedure: The patient tolerated the procedure well Coding 11682 - Large joint Procedure code (CPT) selection complete Results Reviewed Results Reviewed: X-rays of the patient's bilateral knees taken previously show joint space narrowing, subchondral sclerosis, no acute bony abnormalities Assessment & Plan Assessment & Plan (1) Arthritis of left knee: Code(s): M17.12 - Unilateral primary osteoarthritis, left knee Category: Medical (2) Arthritis of right knee: Code(s): M17.11 - Unilateral primary osteoarthritis, right knee Category: Medical Plan Mr. Castellon presents with bilateral knee pains due to degenerative joint disease. The risks and benefits of bilateral knee cortisone injections were discussed at length with the patient. The patient wished to proceed. He tolerated the injections well. He will continue with his home exercise program. He will contact me prior to his follow-up appointment in 3 months should any questions or concerns arise. Feel free to call me at any time should questions regarding his orthopedic management arise. I spent 22 minutes in reviewing the patient's records and imaging studies, seeing the patient and documenting in the medical record. Orders: Orders AMB Joint Injection/Aspiration Today M17.12 - Unilateral primary osteoarth ritis, left knee AMB Joint Injection/Aspiration Today M17.11 - Unilateral primary osteoarthritis, right knee Coding Level of Care Code Est Pt Level 3 (97234) Complex visit Add On G2211 Diagnoses Arthritis of left knee M17.12 Arthritis of right knee M17.11 CPT Codes Coding - 10042 Large joint: 01269 - Large joint ([id number]) Coding - 51574 Large joint: 70621 - Large joint ([id number])
[2025-05-09 08:13] VITALS: BMI 29.5
== END 2025-05-09 08:48 | disposition home or self-care (01) ==
LOC: HO.HOS 07:56
PROVIDERS: Referring Provider Orthopaedic Surgery; Visit Provider Orthopaedic Surgery
DX: M17.0 Bilateral primary osteoarthritis of knee (principal)
CPT/HCPCS: 20610; 99213

== ENCOUNTER → 2025-05-09 07:55 | Outpatient (BNVA) | payer OTHER, SELFPAY | PROVIDERS: Visit Provider Orthopaedic Surgery | DX: M17.0 Bilateral primary osteoarthritis of knee (principal) | CPT/HCPCS: 20610; 99212; J1010; J2003 ==